=== PATIENT | female | born 1960 | race Caucasian/White ===

== ENCOUNTER 2018-06-11 08:58 | Emergency (ER) | payer SELFPAY ==
[2018-06-11 09:08] VITALS: BP 223/122
[2018-06-11] MEDS ORDERED: LISINOPRIL 10 MG TABLET PO ONE (09:49)
--- NOTE | 2018-06-11 09:51 | ER Document Report ---
ED Medical Screen (RME) - General Chief Complaint: High Blood Pressure Stated Complaint: EAR PAIN Time Seen by Provider: 06/11/18 09:49 Mode of Arrival: Ambulatory Information source: Patient Notes: This is a 57-year-old female with a history of hypertension and hypothyroidism who is been off medicines for a year and a half because of lack of insurance. She presents wanting medicine refilled. She denies any chest pain, shortness of breath, abdominal pain. She does report that she has had bilateral ear pain for the past week, left side greater than the right side. She denies fever, neck stiffness or headache. Patient does smoke 1 pack of cigarettes a day. TRAVEL OUTSIDE OF THE [place] IN LAST 30 DAYS: No - HPI Onset: Last week Onset/Duration: Gradual Quality of pain: No pain Severity: None Pain Level: Denies Associated Symptoms: denies: Chest pain, Shortness of breath Exacerbated by: Denies Relieved by: Denies Similar symptoms previously: No Recently seen / treated by doctor: No - Related Data Smoking: Cigarettes Frequency of alcohol use: None Drug Abuse: None Allergies/Adverse Reactions: No Known Allergies Allergy (Verified 06/11/18 08:59) Past Medical History - General Information source: Patient - Social History Cigarette use (# per day): Yes - 1 pack per day Frequency of alcohol use: Occasional Drug Abuse: None Lives with: Family Family history: None - Past Medical History Cardiac Medical History: Reports: Hx Hypertension Pulmonary Medical History: Reports: None EENT Medical History: Reports: None Neurological Medical History: Reports: None Endocrine Medical History: Reports: Hx Hypothyroidism Renal/ Medical History: Reports: None. Denies: Hx Peritoneal Dialysis Malignancy Medical History: Reports: None GI Medical History: Reports: None Musculoskeltal Medical History: Reports None Skin Medical History: Reports None Psychiatric Medical History: Reports: None Traumatic Medical History: Reports: None Infectious Medical History: Reports: None Surgical Hx: Negative Review of Systems - Review of Systems Constitutional: denies: Chills, Fever EENT: See HPI Cardiovascular: denies: Chest pain, Palpitations, Heart racing, Dyspnea, Syncope Respiratory: denies: Hemoptysis, Short of breath, Wheezing Gastrointestinal: No symptoms reported Genitourinary: No symptoms reported Female Genitourinary: No symptoms reported Musculoskeletal: No symptoms reported Skin: No symptoms reported Hematologic/Lymphatic: No symptoms reported Neurological/Psychological: No symptoms reported Physical Exam - Vital signs Vitals: Temp Pulse Resp BP Pulse Ox 97.4 F 115 H 20 223/122 H 96 06/11/18 09:06 06/11/18 09:06 06/11/18 09:06 06/11/18 09:06 06/11/18 09:06 Notes: Physical exam: GENERAL: The 57-year-old female, alert and oriented 3, no acute distress. She does have an elevated blood pressure of 223/122 HEAD: Atraumatic, normocephalic. EYES: Pupils equal round and reactive to light, extraocular movements intact, sclera anicteric, conjunctiva are normal. ENT: TMs normal, patient does have erythema in the ear canals (right greater than left) consistent with otitis externa. There is no erythema or obvious infection external to the canal. The mastoid is nontender bilaterally. Oropharynx clear without exudates. Moist mucous membranes. NECK: Normal range of motion, supple without obvious mass or JVD. LUNGS: Breath sounds clear to auscultation bilaterally and equal. No wheezes rales or rhonchi. HEART: Regular rate and rhythm without murmurs, rubs or gallops. ABDOMEN: Soft, normoactive bowel sounds. No tenderness to palpation. No guarding, no rebound. No masses appreciated. EXTREMITIES: Normal range of motion, no pitting or edema. No clubbing or cyanosis. NEUROLOGICAL: Cranial nerves II through XII grossly intact. Normal speech, moving all extremities. PSYCH: Normal mood, normal affect. SKIN: Warm, Dry, normal turgor, no rashes or lesions noted. Course - Re-evaluation Re-evalutation: 06/11/18 10:06 Patient has been previously on lisinopril 20 mg daily. Since we are restarting her after a year and a half, which will start at 10 mg daily. I implored her to get follow-up and to start immediately on discharge from today. She was started in the emergency room on lisinopril 10 mg. I have given her a prescription. I requested that we do some baseline kidney function tests but the patient does not want to stay (she does have a sick mother at home). I have advised her to get blood work when following up in the next few weeks. I have given her the number for the [facility] as well as the [facility] which has reduced costs. The medicine prescribed today is on the $4 list. I have discussed the negative effects of cigarette smoking and I have recommended that she cut down on cigarettes with the goal of stopping completely. As far as the hypothyroidism, I told her we could not restart her on medicines without blood work (which he does not want today). As far as the bilateral ear pain, her ear canals do look somewhat erythematous and I am putting her on drops. I do not see any erythema of the eardrum itself or any fluid behind the eardrum. 06/11/18 10:10 - Vital Signs Vital signs: Temp Pulse Resp BP Pulse Ox 97.4 F 115 H 20 223/122 H 96 06/11/18 09:06 06/11/18 09:06 06/11/18 09:06 06/11/18 09:06 06/11/18 09:06 Doctor's Discharge - Discharge Clinical Impression: Otitis externa Hypertension Qualifiers: Hypertension type: essential hypertension Qualified Code(s): I10 - Essential ( primary) hypertension Condition: Stable Disposition: HOME, SELF-CARE Additional Instructions: As we discussed, your blood pressure was 223/122. We are starting you back on your lisinopril at 10 mg daily. There is imperative that you follow-up with a doctor to get a repeat blood pressure check and have the medicine increased if needed. As we discussed, its important that you get baseline blood work to see your kidney function tests as well. We will willing to do those tests today, but you have opted to wait until follow-up. While this is okay in the short-term, its important these tests get checked when you start following up. I have left the number for the [facility] on the chart which is a free clinic affiliated with the [facility]. Also the [facility] delivers low-cost medical care and I recommend you call them as well if you cannot get into the [facility]. The [address] [phone] Tell them that your blood pressure today was 223/122 and you were started on a blood pressure medicine and the ER doctor wanted she seen within the next week or 2 for repeat blood pressure check. As we discussed, smoking will contribute to an elevated blood pressure: I recommend you cut down on smoking as much as she can with the goal of stopping. Return to the emergency room for any concerns or getting worse: Worsening headaches, chest pain, shortness of breath, weakness worse changes in speech. As far as the eardrops: 1 drop in both ears twice daily. Prescriptions: Lisinopril 10 mg PO DAILY #30 tablet Forms: Elevated Blood Pressure Referrals: [facility] [Provider Group] - Follow up as needed (This is the number the free clinic: Tell them that your blood pressure today was 223/122 and you were started on a blood pressure medicine and the ER doctor wanted she seen within the next week or 2 for repeat blood pressure check)
[2018-06-11] MEDS ORDERED: CIPROFLOXACIN HCL/DEXAMETH OTIC DROP 7.5 ML AU ONE (09:56)
== END 2018-06-11 10:02 | disposition home or self-care (01) ==
LOC: ER 08:58
DX: H60.93 Unspecified otitis externa, bilateral (principal); I10 Essential (primary) hypertension; F17.210 Nicotine dependence, cigarettes, uncomplicated; E03.9 Hypothyroidism, unspecified
CPT/HCPCS: 99283; J3490